=== PATIENT | female | born 1955 | race Caucasian/White ===

== ENCOUNTER 2017-02-21 18:17 | Emergency (ER) | payer OTHER ==
[~2017-02-21] VITALS: Ht 170.2 cm; Wt 89.0 kg
[2017-02-21] MEDS ORDERED: PREDNISONE20 MG PO (20:48)
[2017-02-21] MEDS ORDERED: ULTRACET1 TABLET PO (20:48)
[2017-02-21] MEDS ORDERED: MOTRIN600 MG PO (20:48)
[2017-02-21] MEDS ORDERED: LIDODERM 5% P1 PATCH TD (20:48)
[2017-02-21 21:18] VITALS: BP 153/97
== END 2017-02-21 21:20 | disposition home or self-care (01) ==
LOC: EME 18:17
DX: M51.04 Intervertebral disc disorders with myelopathy, thoracic region (principal); M85.88 Other specified disorders of bone density and structure, other site; Z85.3 Personal history of malignant neoplasm of breast
CPT/HCPCS: 72070; 99281; 99284; J3010; J7512

== ENCOUNTER 2017-02-24 18:15 | Emergency (ER) | payer OTHER ==
[~2017-02-24] VITALS: Ht 170.2 cm; Wt 84.1 kg
[~2017-02-24 18:15] MED LIST: LIDODERM 5% P1 PATCH TD; MOTRIN600 MG PO; PREDNISONE20 MG PO; ULTRACET1 TABLET PO
[2017-02-24 20:38] LABS: HEMATOCRIT 42.7 % (36.0-46.0); MCHC 32.8 G/DL (30.0-36.0); MCV 94.5 FL (83-99); MEAN PLAT.VOLUME 8.9 uM^3 (9.5-12.4); PLATELET COUNT 440 K/uL (156-360); RBC DIS.WIDTH-CV 12.9 % (11.8-14.6); RBC DIS.WIDTH-SD 44.9 % (39-53); RED BLOOD COUNT 4.52 M/uL (3.80-5.20); WHITE BLOOD COUNT 11.1 K/uL (4.1-10.2)
[2017-02-24 20:49] LABS: CHLORIDE 100 mEq/L (99-109); SODIUM 139 mEq/L (136-147)
[2017-02-24 20:50] LABS: GLUCOSE 122 mg/dL (70-99)
[2017-02-24 20:52] LABS: ANION GAP 15 MEQ/L (2-14)
[2017-02-24 20:54] LABS: GFR ESTIMATE (CALCULATED) 49 mL/min/
[2017-02-24 20:55] LABS: UREA NITROGEN (BUN) 22 mg/dL (9-23)
[2017-02-24] MEDS ORDERED: VALIUM5 MG PO (23:43)
[2017-02-24] MEDS ORDERED: PERCOCET 5/31 TABLET PO (23:43)
[2017-02-24] MEDS ORDERED: MEDROL DOSEPAK4 MG PO (23:43)
[2017-02-25 00:17] VITALS: BP 186/92
== END 2017-02-25 00:20 | disposition home or self-care (01) ==
LOC: EME 18:15
PROVIDERS: Emergency Medicine
DX: C80.1 Malignant (primary) neoplasm, unspecified (principal); C79.51 Secondary malignant neoplasm of bone
CPT/HCPCS: 71275; 72129; 72132; 74177; 80048; 85027; 99281; 99284; J1885; J2405; J3360

== ENCOUNTER → 2017-03-15 | Outpatient (CLI) | payer OTHER ==
[~2017-03-15] VITALS: Ht 170.2 cm; Wt 85.3 kg
[~2017-03-15] MED LIST changes: +ALENDRONATE SOD70 MG PO; +ASPIR 8181 M1 PO; +FEMARA2.5 MG PO; +LISINOPRIL-HCT1 EACH PO; +MEDROL DOSEPAK4 MG PO; +METOPROLOL SUCC25 MG PO; +OXYCODONE HCL10 MG PO; +PERCOCET 5/31 TABLET PO; +VALIUM5 MG PO
[2017-03-15 11:01] LABS: INTER. NORMALIZED RATIO 1.1; PROTHROMBIN TIME 11.8 SEC (10.2-12.9)
[2017-03-15 11:04] LABS: PTT 32.6 SEC (25-37)
== END | disposition home or self-care (01) ==
LOC: OPR 03-14 09:53 → EDSTATUS 10:00 → OPR 10:00
PROVIDERS: Internal Medicine
PROC: 0QB23ZX Excision of Right Pelvic Bone, Percutaneous Approach, Diagnostic (ICD-10-PCS; principal; 2017-03-15)
DX: C79.51 Secondary malignant neoplasm of bone (principal); Z85.3 Personal history of malignant neoplasm of breast; Z87.891 Personal history of nicotine dependence; Z79.82 Long term (current) use of aspirin; I10 Essential (primary) hypertension; M85.80 Other specified disorders of bone density and structure, unspecified site
CPT/HCPCS: 77012; 85610; 85730; 88305; 88341 TC; 88342 TC; 88360; J2250; J2310; J3010